=== PATIENT | female | born 1990 | race Caucasian/White ===

== ENCOUNTER → 2021-04-04 | Outpatient (CLI) | payer SELFPAY ==
[~2021-04-04] MED LIST: IBU800 M1 PO; PRENATAL TABLET PO
== END ==
LOC: ZCOL.LAB 09:37
DX: Z20.822 Contact with and (suspected) exposure to COVID-19 (principal)

== ENCOUNTER 2021-04-06 04:45 | Inpatient (IN) | payer BC ==
[2021-04-06] VITALS (56 sets, daily range): BP systolic 108–155; BP diastolic 55–86; PULSE 55–94; TEMP 98.3–101.1
[~2021-04-06] VITALS: Ht 157.5 cm; Wt 69.5 kg
--- NOTE | 2021-04-06 04:50 | NUR ---
0450- PATIENT AND SPOUSE AMBULATORY TO THE UNIT. PATIENT OF DR. MELGAR WHO IS A AT 40.2 WHO PRESENTS TO THE UNIT WITH CONTRACTIONS. PATIENT STATED THEY HAVE BEEN IRREGULAR ALL DAY BUT AROUND 0230 GOT TO BE ABOUT 2-3 MINUTES APART AND MUCH STRONGER. PATIENT REPORTS GFM, NO LOF OR BLEEDING. PATIENT ORIENTATED TO ROOM AND CHANGED INTO CLEAN GOWN. 0456- EFM AND TOCO ON AND TRACING. VITALS TAKEN ASSESSMENT COMPLETE. SVE 3-4/90/-2 WITH A BULDGY BAG NOTED. PLAN OF CARE DISCUSSED AND PATIENT VERBALIZED UNDERSTANDING WITH NO FURTHER QUESTIONS. CALL LIGHT WITHIN REACH.
[2021-04-06] MEDS ORDERED: PRENATAL TABLET PO (05:16)
--- NOTE | 2021-04-06 06:20 | NUR ---
0620-Recieved report from FABIOLA Morales Patient sitting up in bed finishing consents. Denies need for pain medication at this time. Stops to breath through contractions, well controlled. Reviewed plan of care. 0635-IV to left forearm. Blood collected and sent to lab per protocol, LR and Pen G per GBS + protocol infusing, see EMAR. 0642-Off EFM to bathroom and up to ambulate in room. Instructed to call with change in comfort level, SROM, or pressure. Verbalized understanding.
[2021-04-06 07:34] LABS: BASO % 0.3 % (0.0-2.0); EOS # 0.1 (0.0-0.7); EOS % 0.5 % (0-4.0); GRAN # 9.2 (1.4-6.5); GRAN % 80.7 % (42.2-75.2); HEMATOCRIT 39.8 % (37.0-47.0); HEMOGLOBIN 13.4 g/dl (12.5-16.0); LYMPH # 1.4 (1.2-3.4); LYMPH % 12.5 % (20.0-51.0); MEAN CELL VOLUME 88 fl (80.0-100.0); MEAN CORPUSCULAR HEMOGLOBIN 30 pg (27.0-31.0); MEAN CORPUSCULAR HGB CONC 34 g/dl (33.0-37.0); MEAN PLATELET VOLUME 11.8 fl (7.4-10.4); MONO # 0.6 (0.1-0.6); MONO % 5.6 % (1.7-9.3); PLATELET COUNT 245 K/mm3 (130-400); RED BLOOD COUNT 4.54 M/mm3 (4.10-5.30); REDCELL DISTRIBUTION WIDTH-CV 12.4 % (11.5-14.5)
--- NOTE | 2021-04-06 10:25 | NUR ---
1025-YASMIN Hall to patient room per patient request for epidural placement. Patient sitting upright on bedside for placement. 1034-Test dose administered by YASMIN Hall. Patient VSS and tolerated procedure well. See anesthesia records. 1040-Repositioned WL in bed and updated on safety and plan of care. 1115-Roberts to DD, minmal clear light pink urine return. SVE 7/100/-2. Dr. Mitchell on unit at desk updated. 1145-SVE per MD no change, orders by MD to start pitocin per protocol. Pit started at 2mu/min see EMAR.
--- NOTE | 2021-04-06 13:52 | NUR ---
1205-FHR decel while patient RL with LLE in [facility]. FHR difficult to maintain tracing. RN holding EFM in place. SVE by this RN no change /. Dr. Mckenzie to patient room. FSE placed by this RN per MD order. Repositioned WL and plan of care reviewed with Dr. Mckenzie and patient.
--- NOTE | 2021-04-06 14:15 | NUR ---
SVE by Dr. Mckenzie 1, swelling on anterior cervix per MD. Patient Repositoned RL with LLE in [facility]. Roberts catheter fell out with repositioning. Orders to leave out at this time.
--- NOTE | 2021-04-06 14:55 | NUR ---
1435-Patient assisted to modified welchers position, RN remains with patient at bedside. 50mg IV benadryl given per MD order, see EMAR>
--- NOTE | 2021-04-06 16:15 | NUR ---
1615-Difficulty tracing contractions due to maternal positioning, EFM readjusted.
--- NOTE | 2021-04-06 18:30 | NUR ---
Report received, care assumed. SVE without change. Patient sits upright in silke position, at side.
--- NOTE | 2021-04-06 19:40 | NUR ---
Patient assisted to knee chest, patient reports feeling increased pressure with contractions. In knee chest for 15 minutes and then assisted to right lateral side.
--- NOTE | 2021-04-06 20:37 | NUR ---
2018 SVE complete/+2. Patients pushes well with contraction. Dr Mckenzie called for delivery. 2025 Patient begins to push with contraction, pushing well. 2031 Dr. Mckenzie on unit and to room for delivery. Patient prepped for delivery. 2036 of viable female by Dr. Mckenzie. Cord clamped and cut and to the care of FABIOLA Velez. 2048 Spontaneous delivery of placenta by Dr. Mckenzie. Pitocin infusing at 333ml/hr per orders and protocol. Fundus firm with massage.
[2021-04-07] VITALS: BP 128/59; PULSE 74; TEMP 98.6
[2021-04-07 04:10] VITALS: BP 126/63; PULSE 62; TEMP 97.9
[2021-04-07 08:23] VITALS: BP 119/64; PULSE 52; TEMP 97.8
[2021-04-07] MEDS ORDERED: IBU800 M1 PO (12:14)
[2021-04-07 13:10] VITALS: BP 115/58; PULSE 69; TEMP 97.8
[2021-04-07 16:25] VITALS: BP 119/67; PULSE 53; TEMP 97.9
[2021-04-07 19:15] VITALS: BP 123/58; PULSE 66; TEMP 97.7
[2021-04-08 07:10] VITALS: BP 129/64; PULSE 64; TEMP 97.9
--- NOTE | 2021-04-08 07:25 | NUR ---
0610 RECEIVED REPORT AND TOOK OVER CARE. PATIENT DOING WELL AND NOT IN PAIN. SCHEDULED TO FEED AND ASSESS AT 0700.
== END 2021-04-08 11:10 | disposition home or self-care (01) | DRG 768 ==
LOC: LDRO 04:45 → LDR 09:46 → OB 04-07
PROVIDERS: Student in an Organized Health Care Education/Training Program; ADMIT Obstetrics & Gynecology
PROC: 10E0XZZ Delivery of Products of Conception, External Approach (ICD-10-PCS; principal; 2021-04-06)
PROC: 0TQDXZZ Repair Urethra, External Approach (ICD-10-PCS; 2021-04-06)
PROC: 10907ZC Drainage of Amniotic Fluid, Therapeutic from Products of Conception, Via Natural or Artificial Opening (ICD-10-PCS; 2021-04-06)
DX: O48.0 Post-term pregnancy (principal); Z37.0 Single live birth; O26.893 Other specified pregnancy related conditions, third trimester; O99.824 Streptococcus B carrier state complicating childbirth; O99.62 Diseases of the digestive system complicating childbirth; O99.52 Diseases of the respiratory system complicating childbirth; J45.909 Unspecified asthma, uncomplicated; K21.9 Gastro-esophageal reflux disease without esophagitis; Z3A.40 40 weeks gestation of pregnancy; Z67.41 Type O blood, Rh negative
CPT/HCPCS: J1200; J2540; J2590; J2791; J2795; J7120

== ENCOUNTER 2022-12-10 11:53 | Inpatient (IN) | payer BC ==
[~2022-12-10] VITALS: Ht 157.5 cm; Wt 61.4 kg
[2022-12-10] VITALS (18 sets, daily range): BP systolic 113–163; BP diastolic 66–88; PULSE 61–84; TEMP 97.8–98.2
--- NOTE | 2022-12-10 12:00 | NUR ---
PT ARRIVES AMBULATORY TO UNIT, UNABLE TO BREATHE THROUGH REGULAR CONTRACTIONS. STATES SHES BEEN JOSE F SINCE 0300, WORSENING OVER THE PAST 2 HOURS. REPORTS POSITIVE MOVEMENT. DENIES LEAKING OF FLUID OR BLOOD. PLACED ON EFM/TOCO. CATEGORY 1 EFM TRACING. DERRICKE JAYME ALLAN RN -/-1. NOTIFIED OF PT ARRIVAL.
--- NOTE | 2022-12-10 13:00 | NUR ---
PT TO SITTING POSITION FOR EPIDURAL PLACEMENT. DIFFICULTY TRACING EFM DUE TO MATERNAL POSITIONING. MATERNAL VITAL SIGNS STABLE. LR BOLUS INFUSING. 1300: SINGLE SHOT PER YASMIN SHEIKH
[2022-12-10 13:04] LABS: BASO % 0.2 % (0.0-2.0); EOS % 0.4 % (0.0-4.0); GRAN # 7.5 K/mm3 (1.4-6.5); GRAN % 73.6 % (42.2-75.2); HEMATOCRIT 41.5 % (37.0-47.0); HEMOGLOBIN 14.6 g/dl (12.5-16.0); MEAN CELL VOLUME 83 fl (80.0-100.0); MEAN CORPUSCULAR HEMOGLOBIN 29 pg (27-31); MEAN CORPUSCULAR HGB CONC 35 g/dl (33.0-37.0); MEAN PLATELET VOLUME 11.5 fl (7.4-10.4); MONO # 0.6 K/mm3 (0.1-0.6); MONO % 5.5 % (1.7-9.3); PLATELET COUNT 305 K/mm3 (130-400); RED BLOOD COUNT 5.01 M/mm3 (4.10-5.30); REDCELL DISTRIBUTION WIDTH-CV 12.3 % (11.5-14.5)
--- NOTE | 2022-12-10 14:47 | NUR ---
1410: AT BEDSIDE. SVE COMPLETE. ROOM PREPARED FOR DELIVERY. ALL APPROPRIATE STAFF NOTIFIED. AND THIS RN BEGIN COACHING PT THROUGH PUSHING EFFORTS. STRONG MATERNAL EFFORT. 1447: OF VIABLE FEMALE INFANT AT THIS TIME. PLACED ON MATERNAL ABDOMEN. CORD CLAMPED X2 AND CUT BY FOB. CARE OF INFANT ASSUMED BY FABIOLA BRUMFIELD. STRONG CRY NOTED. 1452: OF PLACENTA PER . PITOCIN BOLUS INFUSING PER PROTOCOL. MATERNAL VITAL SIGNS STABLE. LOCHIA SCANT. PERINEUM INTACT. FUNDUS FIRM AT UMBILICUS WITH MASSAGE.
--- NOTE | 2022-12-10 23:46 | NUR ---
rHOGAM GIVEN IV PER DR ORDER FOR O- BLOOD TYPE. PATIENT TOLERATED WELL.
[2022-12-11 05:13] VITALS: BP 113/62; PULSE 60; TEMP 97.8
[2022-12-11 07:50] VITALS: BP 123/74; PULSE 64; TEMP 98.2
[2022-12-11] MEDS ORDERED: IBU600 MG PO (09:46)
--- NOTE | 2022-12-11 10:23 | NUR ---
Initial visit; Patient thanked Industrial Security Analyst for looking in on her and he new daughter and offering congratulations and God's blessings. Industrial Security Analyst thanked patient for choosing [facility].
[2022-12-11 11:30] VITALS: BP 120/67; PULSE 68; TEMP 98
== END 2022-12-11 16:55 | disposition home or self-care (01) | DRG 807 ==
LOC: LDRO 11:53 → LDR 12:18 → OB 12:18
PROVIDERS: ADMIT Obstetrics & Gynecology
PROC: 10E0XZZ Delivery of Products of Conception, External Approach (ICD-10-PCS; principal; 2022-12-10)
DX: O48.0 Post-term pregnancy (principal); Z37.0 Single live birth; Z3A.40 40 weeks gestation of pregnancy; K21.9 Gastro-esophageal reflux disease without esophagitis; O99.62 Diseases of the digestive system complicating childbirth
CPT/HCPCS: J2791; J2795; J7120